=== PATIENT | male | born 1980 | race Caucasian/White ===

== ENCOUNTER → 2019-03-24 17:03 | Outpatient (CLI) | payer OTHER, SELFPAY ==
--- NOTE | 2019-03-24 14:00 | VAS_PTH ---
PATIENT: LEONARDA POWER LOC: [facility] U#:[id number] AGE/SX: 44/M ROOM: RE03/24/[address]: Dr. Mikel Roman MD : 1980 BED: DIS: SPEC #: [id number] RECD: 03/24/19 16:57 STATUS: DELICIA CHARLES #: [id number] PILAR: 03/24/19 14:[address]: Mikel Roman DEPT: SURGICAL PATHOLOGY RECD BY: Tania Nicole ENTERED: 03/27/19 09:39 SP TYPE: VAS OTHR DR: Dr. Miaco York MD Tissues: A - Vas deferens, NOS B - Vas deferens, NOS Procedures: Surgery Specimen Level II HEADER OPERATION: Bilateral partial vasectomy PRE-OP DIAGNOSIS: Sterilization TISSUE SUBMITTED: A. Right vas deferens, B. Left vas deferens MICROSCOPIC DIAGNOSIS A. Right vas deferens, partial vasectomy: Completely transected segment of vas deferens, no pathologic diagnosis. B. Left vas deferens, partial vasectomy: Completely transected segment of vas deferens, no pathologic diagnosis. SANAM:andrew 03/28/19 MICROSCOPIC DESCRIPTION Slides are reviewed. GROSS DESCRIPTION A - Received is one container designated right vas deferens. The specimen consists of a tubular segment of brownlee soft tissue measuring 1 cm in length and 0.2 cm in diameter. The entire specimen is submitted in one cassette. It will be sectioned at the time of embedding. B - Received is one container designated left vas deferens. The specimen consists of a tubular segment of brownlee soft tissue measuring 1.6 cm in length and 0.2 cm in diameter. The entire specimen is submitted in one cassette. It will be sectioned at the time of embedding. / SANAM:andrew 03/27/19 TC:4 CPT: 87236 x2
[2019-03-24 14:09] VITALS: BMI 25.3
== END ==
PROVIDERS: Family Provider Family Medicine; PCP Family Medicine; Referring Provider Surgery; Visit Provider Surgery
DX: Z30.2 Encounter for sterilization (principal)
CPT/HCPCS: 88302